=== PATIENT | male | born 1990 | race Caucasian/White ===

== ENCOUNTER 2016-08-19 19:06 | Emergency (ER) | payer MEDICAID ==
[2016-08-19 19:20] VITALS: BP 139/74; RESP 18; TEMP 98.2; O2SAT 98
[2016-08-19 19:21] VITALS: PULSE 80
[2016-08-19] MEDS ORDERED: ONDANSETRON DISINTEGRATING 4 MG TAB PO ONE (19:24)
[2016-08-19] MEDS ORDERED: MAALOX/HYOSC GI COCKTAIL 45 ML BOTTLE PO ONE (19:37)
[2016-08-19] MEDS ORDERED: ONDANSETRON 4MG PREPACK#2 BTL TAKEHOME ONE (20:08)
--- NOTE | 2016-08-19 20:11 | UCPHY ---
H & P Time Seen by Provider: 08/19/16 19:37 Patient Type: New HPI/ROS: This patient complains of chest pain He has a 4 day history of vomiting and diarrhea that is improving. His last emesis was this morning. He did tolerate pizza for lunch with nausea but no vomiting. His stool which was watery with multiple episodes a day has normalized today to a simple soft stool. He describes the chest pain is a squeezing pain substernal location that seem to worsen after vomiting. He has no other associated symptoms. The peak intensity was 7/10. Currently it is 5/ 10. He has not had this type of pressure before. He is accompanied by his mother and she helps provide some history as patient is autistic. ROS: No fevers or chills. HEENT: No recent cold symptoms. Pulmonary: No cough. No dyspnea. No change in discomfort with a deep breath. Cardiovascular : No heart palpitations. No diaphoresis. No lightheadedness. No leg swelling. GI: No hematemesis. No dark tarry stools. No significant abdominal pain. He arrived with mild to moderate nausea. : No complaints. Integumentary: No complaints. 10 point ROS is otherwise negative Past Medical/Surgical History: No history of pulmonary or cardiac abnormalities or problems. Autistic Social History: He was exposed to other people with vomiting diarrhea this week. No drug use No alcohol use Smoking Status: Never smoked Physical Exam: General Appearance: Alert, no distress. Eyes: Pupils equal and round no pallor or injection. ENT, Mouth: Mucous membranes moist. Respiratory: There are no retractions, lungs are clear to auscultation. No chest wall tenderness. Cardiovascular: Regular rate and rhythm. No murmur gallop rub. No JVD. No peripheral edema. Gastrointestinal: Abdomen is soft and nontender, no masses, bowel sounds normal. Neurological: Alert with no focal deficits. Skin: Warm and dry, no rashes. Musculoskeletal: Neck is supple nontender. Extremities are symmetrical, full range of motion. Psychiatric: Mood and affect are normal DIFFERENTIAL DIAGNOSIS: After history and physical exam differential diagnosis was considered for esophagitis, esophageal spasm, GERD, pneumonia, pneumothorax , pericarditis Constitutional: Initial Vital Signs Temperature (C) 36.8 C 08/19/16 19:15 Heart Rate 80 08/19/16 19:15 Respiratory Rate 18 08/19/16 19:15 Blood Pressure 139/74 H 08/19/16 19:15 O2 Sat (%) 98 08/19/16 19:15 O2 Delivery Mode Room Air Allergies/Adverse Reactions: No Known Allergies Allergy (Verified 08/19/16 19:14) Home Medications: Medication Instructions Recorded risperiDONE [Risperdal 1mg (RX)] 2 mg 02/08/13 Ondansetron Odt [Zofran Odt] 4 - 8 mg PO Q4PRN PRN #4 tab 08/19/16 Viibryd 08/19/16 MDM/Departure - MDM Medications Given: Discontinued Medications Miscellaneous Medication (Gi Cocktail(No Lido)) 45 ml PO EDNOW ONE Stop: 08/19/16 19:38 Last Admin: 08/19/16 19:47 Dose: 45 ml Ondansetron HCl (Zofran Odt) 4 mg PO EDNOW ONE Stop: 08/19/16 19:25 Last Admin: 08/19/16 19:40 Dose: 4 mg ED Course/Re-evaluation: This patient has nausea resolved with sublingual Zofran. His discomfort diminish significantly with GI cocktail down to minimal discomfort. He felt the pressure release in his chest. Discussion: I this patient had esophageal spasm from acid reflux/esophagitis with his recent gastroenteritis. His gastroenteritis symptoms are resolving. He does not have evidence of significant dehydration hearing appears clinically well. He is not using cocaine have other risk factors for significant cardio pulmonary pathology. Given his normal exam and marked improvement with treatment did not pursue further workup at this time. Patient and his mother are comfortable with this. - Depart Disposition: Home, Routine, Self-Care Clinical Impression: Esophageal spasm, Gastroenteritis Condition: Good Instructions: Gastroenteritis (ED), Esophageal Spasm (ED) Additional Instructions: Diagnosis: Viral gastroenteritis 2. Esophageal spasm Plan: [place] diet until he feels improved Drink plenty fluids Zofran for nausea as needed Maalox for discomfort if needed Take Prilosec 40 mg a day for the next week to 10 days Imodium [id number] if needed for diarrhea. Go to the emergency department for any significant worsening despite the treatment plan Prescriptions: Ondansetron Odt [Zofran Odt] 4 - 8 mg PO Q4PRN PRN #4 tab PRN Reason: Vomiting Referrals: Portillo Allan DO [Primary Care Provider] - As per Instructions - PQRS PQRS Measurement: NA
== END 2016-08-19 20:23 | disposition home or self-care (01) ==
LOC: CED 19:06
DX: K52.9 Noninfective gastroenteritis and colitis, unspecified (principal); K22.4 Dyskinesia of esophagus
CPT/HCPCS: 99203-PO; G0463-PO

== ENCOUNTER 2016-09-23 20:30 | Emergency (ER) | payer MEDICAID ==
[2016-09-23] MEDS ORDERED: IPRATROPIUM/ALBUTEROL 3 ML DEYVIAL IH ONE (20:46)
--- NOTE | 2016-09-23 20:58 | UCPHY ---
H & P Time Seen by Provider: 09/23/16 20:42 Patient Type: Established HPI/ROS: CHIEF COMPLAINT: Fever, cough HISTORY OF PRESENT ILLNESS: The patient is a 26-year-old male presenting with fever, chills, and cough. The patient has a productive cough. He additionally complains of sore throat that is worse with eating and coughing. The patient took Mucinex at 1pm. He lives in a assisted, no one else is currently ill. Longstanding medical problems related to traumatic brain injury He did not received an influenza vaccine this season. REVIEW OF SYSTEMS: Constitutional: Maybe a fever, some sweats. Eyes: No discharge ENT: Moderate, worse with cough Cardiovascular: No chest pain, no palpitations. Respiratory: Coughing and perhaps some wheezing though not short of breath per se Gastrointestinal: No nausea vomiting or diarrhea. No abdominal pain. Musculoskeletal: No back pain. Skin: No rashes. Neurological: No headache. 10 point ROS otherwise negative Past Medical/Surgical History: TBI. Social History: Resides at a host house. Smoking Status: Never smoked Physical Exam: General Appearance: Alert, hemodynamically stable. Afebrile. Normal phonation. Moderate respiratory distress, though able to speak in full sentences Eyes: Pupils equal and round no pallor or injection. No icterus ENT, Mouth: Mucous membranes moist. TM Clear. Pharyngeal erythema, no exudates or petechia. No tenderness to larynx. Neck: No adenopathy. Supple. No JVD. Trachea in midline. Respiratory: There are no retractions, moderate wheezes heard in all lung garcia bilateral rhonchi. Cardiovascular: Regular rate and rhythm, no murmur Skin: Warm and dry, while he does not have a rashes rather flushed. Granted he has redheaded. However he is feels much warmer than the initial triage temperature. Later during the course of his ER visit when he was less febrile less warm and less flushed his temperature was 99.6 on my reading Musculoskeletal: No joint swelling. Extremities: No edema. Psychiatric: Normal affect. Constitutional: Initial Vital Signs Temperature (C) 37.3 C 09/23/16 20:43 Heart Rate 110 H 09/23/16 20:43 Respiratory Rate 20 09/23/16 20:43 Blood Pressure 111/76 09/23/16 20:43 O2 Sat (%) 97 09/23/16 20:43 O2 Delivery Mode Room Air Allergies/Adverse Reactions: No Known Allergies Allergy (Verified 09/23/16 20:42) Home Medications: Medication Instructions Recorded risperiDONE [Risperdal 1mg (RX)] 2 mg 02/08/13 Viibryd 08/19/16 Albuterol [Proventil Inhaler HFA 2 puffs IH QID #1 mdi 09/23/16 (*)] predniSONE [Prednisone] 30 mg PO BID #30 tablet 09/23/16 Medical Decision Making - Diagnostics Imaging: Imaging Impressions Chest X-Ray 09/23/16 20:48 Impression: Mild bronchitis, otherwise negative. Films by me on the PAC system ED Course/Re-evaluation: The patient is a 26-year-old male presenting with cough, sore throat, and wheezing. On arrival the patient was started on an albuterol breathing treatment. After the breathing treatment he felt slightly improved. The patient is febrile and tachycardic. After initial triage assessment he was given a nebulizer Proventil and noted to have at that time on my exam bilateral rhonchi at the bases, with much improved breathing. Plan for chest x-ray. An influenza swab and strep throat swab were sent to the lab. Patient received 650mg Tylenol PO. I viewed the X-ray of the chest myself on the PACS system. X-ray is negative. Please see the full radiology report in the imaging section. Patient has a negative strep swab. Strep DNA is pending, patient will have to call for results. Influenza swab is negative. 10:28 p.m.: I discussed findings with the patient. On reexamination his wheezing has improved. The fever is actually noted now at this time were initially at triage was not. I suspect was matter of technique. Temp is 37.6, on my reading. Plan to discharge home with Prednisone and albuterol inhaler. Differential Diagnosis: Diagnostic considerations include, but are not limited to, the following: URI, sinusitis, pharyngitis, otitis media, pneumonia, allergy, influenza, asthmatic bronchitis - Data Points Laboratory Results: 09/23/16 09/23/16 09/23/16 Unknown 21:10 21:10 Influenza Typ A,B (DFA) NEGATIVE FOR FLU (NEGATIVE) Group A Strep Screen NEGATIVE (NEGATIVE) Group A Strep DNA Pending Medications Given: Discontinued Medications Acetaminophen (Tylenol) 650 mg PO EDNOW ONE Stop: 09/23/16 21:59 Last Admin: 09/23/16 21:58 Dose: 650 mg Albuterol Sulfate (Proventil Inh Prepack) 1 mdi TAKEHOME EDNOW ONE Stop: 09/23/16 22:35 Last Admin: 09/23/16 22:50 Dose: 1 mdi Albuterol/Ipratropium (Duoneb) 3 ml IH EDNOW ONE Stop: 09/23/16 20:47 Last Admin: 09/23/16 20:54 Dose: 3 ml Prednisone (Prednisone) 60 mg PO EDNOW ONE Stop: 09/23/16 22:35 Last Admin: 09/23/16 22:43 Dose: 60 mg Departure - Departure Disposition: Home, Routine, Self-Care Clinical Impression: Asthmatic bronchitis with acute exacerbation Upper respiratory infection Qualifiers: URI type: unspecified viral URI Qualified Code(s): J06.9 - Acute upper respiratory infection, unspecified; B97.89 - Other viral agents as the cause of diseases classified elsewhere Condition: Good Instructions: Upper Respiratory Infection (ED) Additional Instructions: 1. Take full course of Prednisone as prescribed. 2. Use the albuterol inhaler 2 puffs every 4 hours as needed. 3. Drink plenty of fluids. 4. Followup with your primary care physician if your symptoms do not improve. 5. Tylenol for fevers needed 650 mg every 4-6 hours as needed. Referrals: Portillo Allan, [Primary Care Provider] - As per Instructions Stand Alone Forms: Work Excuse Prescriptions: Albuterol [Proventil Inhaler HFA (*)] 2 puffs IH QID #1 mdi predniSONE [Prednisone] 30 mg PO BID #30 tablet - PQRS PQRS Measurement: NA Report Scribed for: Brian Erwin Report Scribed by: Yani Heaton Date of Report: 09/23/16 Time of Report: 21:08
[2016-09-23] MEDS ORDERED: ACETAMINOPHEN 325 MG TAB PO ONE (21:58)
[2016-09-23] MEDS ORDERED: predniSONE 20 MG TAB PO ONE (22:34)
[2016-09-23] MEDS ORDERED: ALBUTEROL INH PREPACK MDI TAKEHOME ONE (22:34)
[2016-09-23 22:40] VITALS: BP 111/67; PULSE 98; RESP 18; TEMP 99.2; O2SAT 98
== END 2016-09-23 22:45 | disposition home or self-care (01) ==
LOC: CED 20:30
DX: J06.9 Acute upper respiratory infection, unspecified (principal); B97.89 Other viral agents as the cause of diseases classified elsewhere
CPT/HCPCS: 71020-PO; 87400-PO; 87880-PO; 99214-PO; G0463-PO